=== PATIENT | male | born 1960 | race Caucasian/White ===

== ENCOUNTER → 2020-11-01 08:18 | Outpatient (BNVA) | payer OTHER, SELFPAY | PROVIDERS: Visit Provider Internal Medicine | DX: S06.0X0A Concussion without loss of consciousness, initial encounter (principal); V89.2XXA Person injured in unspecified motor-vehicle accident, traffic, initial encounter | CPT/HCPCS: 70450; 99202; 99203 ==

== ENCOUNTER → 2020-11-05 09:26 | Outpatient (BNVA) | payer OTHER, SELFPAY | PROVIDERS: Visit Provider Internal Medicine | DX: S06.9X0D Unspecified intracranial injury without loss of consciousness, subsequent encounter (principal); V89.2XXD Person injured in unspecified motor-vehicle accident, traffic, subsequent encounter | CPT/HCPCS: 99213 ==

== ENCOUNTER → 2021-08-29 08:26 | Outpatient (BNVA) | payer OTHER, SELFPAY | DX: Z02.79 Encounter for issue of other medical certificate (principal) ==

== ENCOUNTER → 2023-04-05 08:40 | Outpatient (BNVA) | payer SELFPAY | PROVIDERS: Visit Provider Physician Assistant ==